=== PATIENT | male | born 1990 | race Caucasian/White ===

== ENCOUNTER 2017-10-17 04:34 | Emergency (ER) | payer SELFPAY ==
[~2017-10-17] VITALS: Ht 182.9 cm; Wt 84.0 kg
[2017-10-17 04:37] VITALS: Ht 182.9 cm; Wt 84.0 kg
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
[2017-10-17] MEDS ORDERED: TRAM50TA2 PO (05:52)
[2017-10-17] MEDS ORDERED: IBUP-1542 PO (05:52)
--- NOTE | 2017-10-17 06:09 | RADRPT ---
PROCEDURE: Testicle ultrasound with power Doppler. CLINICAL INDICATION: Scrotal pain. TECHNIQUE: Multiple sonographic images of the scrotal region were obtained utilizing a linear arra y transducer with grayscale and color-flow and a Doppler imaging. The images were reviewed on a high -resolution PACS workstation. COMPARISON: None. FINDINGS: Bilateral testicles are normal in size, contour, echogenicity and echotexture. The right testicle m easures 4.8 x 2.1 x 3.1 cm and the left testicle measures 4.0 x 1.8 x 3.0 cm. Testicle arterial and venous flow are normal. There is no evidence of testicular mass or torsion. There is no evidence of orchitis. The right epididymis is heterogeneous with increased vascularity compatible with epididymitis. The right epididymis measures 9.5 mm the left epididymis measures 8.0 mm. There are mild hydroceles bila terally. There is no varicocele. Scrotal soft tissues are unremarkable. IMPRESSION: Heterogeneous right epididymis with increased vascularity compatible with epididymitis. Bilateral mild hydroceles. .Jin Villasenor MD, MD Date Time Electronically viewed and signed by .Jin Villasenor MD, MD on 10/17/2017 06:09 .T/
[2017-10-17] MEDS ORDERED: DOXY100T20 PO (06:11)
[2017-10-17 06:24] LABS: URINE BLOOD (Dip) POC Trace-intact (NEGATIVE)
[2017-10-17] MEDS ORDERED: CEFTRIAXONE 250 MG INJ IM ONE (06:30)
== END 2017-10-17 07:37 | disposition home or self-care (01) ==
LOC: FTE 04:34
DX: S30.22XA Contusion of scrotum and testes, initial encounter (principal); N45.1 Epididymitis; W50.1XXA Accidental kick by another person, initial encounter; Y92.9 Unspecified place or not applicable
CPT/HCPCS: 76870; 81003; 87591; 96372; 99285; J0696